=== PATIENT | female | born 1960 | race Caucasian/White ===

== ENCOUNTER 2016-09-10 12:28 | Emergency (ER) | payer MEDICAID ==
[~2016-09-10] VITALS: Ht 160 cm; Wt 65.8 kg
--- NOTE | 2016-09-10 12:38 | NUR ---
PT BIB C/O DIFFUSE ABD PAIN AND LOWER BACK PAIN X3 WKS, WORSE TODAY. REPORTS NAUSEA AND CONSTIPATION, NO VOMITING. RESP EVEN UNLABORED. SKIN WARM NONDIAPHORETIC. AMBULATORY WITH STEADY GAIT. NAD NOTED. DENIES URINARY SYMPTOMS.
[2016-09-10 13:19] LABS: BASOPHILS # (AUTO) 0.1 /CMM (0.0-0.2); BASOPHILS % (AUTO) 1.2 % (0.0-2.0); EOSINOPHILS # (AUTO) 0.1 /CMM (0.0-0.7); EOSINOPHILS % (AUTO) 1.4 % (0.0-6.0); HEMATOCRIT 37 % (33-45); HEMOGLOBIN 12.4 g/dL (11.5-14.8); LYMPHOCYTES # (AUTO) 2.2 /CMM (0.8-4.8); MEAN CORPUSCULAR HEMOGLOBIN 30 PG (26.0-33.0); MEAN CORPUSCULAR HGB CONC 33 g/dl (31.0-36.0); MEAN CORPUSCULAR VOLUME 91 fL (82-100); MONOCYTES # (AUTO) 0.3 /CMM (0.1-1.30); NEUTROPHILS # (AUTO) 2.1 /CMM (1.8-8.9); NEUTROPHILS % (AUTO) 44.4 % (43.0-81.0); PLATELET COUNT (AUTO) 279 /CMM (150-450); RDW COEFFICIENT OF VARIATION 12.6 (11.5-15.0); RED BLOOD CELL COUNT(AUTO) 4.09 MIL/uL (4.0-5.2); WHITE BLOOD COUNT (AUTO) 4.8 K/uL (4.3-11.0)
[2016-09-10 13:28] LABS: CALCIUM, SERUM 9.3 mg/dL (8.5-10.1); CREATININE 0.7 mg/dL (0.6-1.3); POTASSIUM 3.8 mmol/L (3.5-5.1)
[2016-09-10 13:33] LABS: ALBUMIN 3.9 g/dL (3.4-5.0); BILIRUBIN,DIRECT 0.1 mg/dL (0.0-0.2); BILIRUBIN,TOTAL 0.5 mg/dL (0.2-1.0); TOTAL PROTEIN, SERUM 7.4 g/dL (6.4-8.2)
[2016-09-10] MEDS: IV NS 0.9% 1,000 ML BAG IV ONE (13:37)
[2016-09-10] MEDS: MORPHINE SULFATE INJ 2 MG/ML DISP.SYRIN IV ONE (13:37)
[2016-09-10] MEDS: MORPHINE SULFATE INJ 4 MG/ML DISP.SYRIN ONE (13:38)
[2016-09-10] MEDS: ONDANSETRON HCL/PF 4 MG/2 ML VIAL ONE (13:38)
[2016-09-10] MEDS: ONDANSETRON HCL/PF 4 MG/2 ML VIAL IVP ONE (13:38)
--- NOTE | 2016-09-10 14:15 | NUR ---
RESTING QUIETLY, NAD NOTED. PAIN WELL CONTROLLED WITH MEDICATION ORDERED.
[2016-09-10 15:33] LABS: APPEARANCE,URINE CLEAR (CLEAR); BILIRUBIN,URINE NEGATIVE (NEGATIVE); BLOOD, URINE 1+ Ery/uL (NEGATIVE); COLOR,URINE YELLOW (YELLOW); KETONES,URINE NEGATIVE (NEGATIVE); LEUKOCYTE ESTERASE ,URINE NEGATIVE (NEGATIVE); NITRITE, URINE NEGATIVE (NEGATIVE); PH,URINE 7.5 (5.0-8.0); PROTEIN,URINE NEGATIVE (NEGATIVE); UGLUCOSE NEGATIVE (NEGATIVE); UROBILINOGEN,URINE 0.2 EU/dL (0.2)
[2016-09-10 15:39] LABS: BACTERIA,URINE Rare /HPF (None Seen); SQUAMOUS EPITHELIAL CELL,UR Rare /HPF (None Seen); URINE AMORPHOUS PHOSPHATES Few /HPF (None Seen); WBC,URINE 0-2 /HPF (0-3)
--- NOTE | 2016-09-10 15:50 | NUR ---
Patient discharged to home in stable condition. Written and verbal after care instructions given. Patient verbalizes understanding of instruction. IV removed. Catheter intact and site benign. Pressure and 4x4 applied to site. No bleeding noted.
[2016-09-10 15:51] VITALS: BP 129/76
== END 2016-09-10 15:52 | disposition home or self-care (01) ==
LOC: ER 12:29
DX: R10.84 Generalized abdominal pain (principal); B96.20 Unspecified Escherichia coli [E. coli] as the cause of diseases classified elsewhere; K57.30 Diverticulosis of large intestine without perforation or abscess without bleeding; N39.0 Urinary tract infection, site not specified; Z88.0 Allergy status to penicillin
CPT/HCPCS: 36415; 72128-TC; 80048-TC; 80076-TC; 81000-TC; 83690-TC; 85025-TC; A4606; J2270; J2405; J7030; Z7610

== ENCOUNTER 2016-09-17 15:53 | Inpatient (IN) | payer MEDICAID ==
[~2016-09-17] VITALS: Ht 160 cm; Wt 62.6 kg
--- NOTE | 2016-09-17 16:12 | NUR ---
R FLANK PAIN, R L Q ABD PAIN X 3 MONTHS. GOWNED PT PLACED ON MONITOR. AWAITING MD ORDER
[2016-09-17] MEDS ORDERED: ONDANSETRON HCL/PF 4 MG/2 ML VIAL ONE (16:27)
[2016-09-17 16:28] LABS: BASOPHILS % (AUTO) 0.5 % (0.0-2.0); EOSINOPHILS # (AUTO) 0.2 /CMM (0.0-0.7); EOSINOPHILS % (AUTO) 2.2 % (0.0-6.0); HEMATOCRIT 37 % (33-45); HEMOGLOBIN 12.3 g/dL (11.5-14.8); LYMPHOCYTES # (AUTO) 2.3 /CMM (0.8-4.8); LYMPHOCYTES % (AUTO) 28.8 % (20.0-44.0); MEAN CORPUSCULAR HEMOGLOBIN 31 PG (26.0-33.0); MEAN CORPUSCULAR HGB CONC 34 g/dl (31.0-36.0); MEAN CORPUSCULAR VOLUME 91 fL (82-100); MONOCYTES # (AUTO) 0.4 /CMM (0.1-1.30); NEUTROPHILS # (AUTO) 4.9 /CMM (1.8-8.9); NEUTROPHILS % (AUTO) 63.5 % (43.0-81.0); PLATELET COUNT (AUTO) 284 /CMM (150-450); RDW COEFFICIENT OF VARIATION 12.8 (11.5-15.0); RED BLOOD CELL COUNT(AUTO) 4.01 MIL/uL (4.0-5.2); WHITE BLOOD COUNT (AUTO) 7.8 K/uL (4.3-11.0)
[2016-09-17] MEDS ORDERED: MORPHINE SULFATE INJ 4 MG/ML DISP.SYRIN ONE (16:28)
[2016-09-17 16:30] LABS: APPEARANCE,URINE Clear (CLEAR); BILIRUBIN,URINE Negative (NEGATIVE); BLOOD, URINE Small Ery/uL (NEGATIVE); COLOR,URINE Yellow (YELLOW); KETONES,URINE Negative (NEGATIVE); LEUKOCYTE ESTERASE ,URINE Negative (NEGATIVE); NITRITE, URINE Negative (NEGATIVE); PH,URINE 6.5 (5.0-8.0); PROTEIN,URINE Negative (NEGATIVE); UGLUCOSE Negative (NEGATIVE); UROBILINOGEN,URINE 0.2 EU/dL (0.2)
[2016-09-17] MEDS ORDERED: IV NS 0.9% 1,000 ML BAG IV ONE (16:30)
[2016-09-17] MEDS ORDERED: MORPHINE SULFATE INJ 2 MG/ML DISP.SYRIN IV ONE (16:30)
[2016-09-17] MEDS ORDERED: ONDANSETRON HCL/PF 4 MG/2 ML VIAL IVP ONE (16:30)
--- NOTE | 2016-09-17 16:30 | NUR ---
LAC #20 IV ACCESS. BLOOD SAMPLE COLLECTED SENT TO LAB
[2016-09-17 16:38] LABS: CARBON DIOXIDE 29 mmol/L (21-32); CHLORIDE 106 mmol/L (98-107); CREATININE 0.9 mg/dL (0.6-1.3); GLUCOSE 106 mg/dL (74-106); POTASSIUM 3.7 mmol/L (3.5-5.1); SODIUM SERUM 142 mmol/L (136-145); UREA NITROGEN, BLOOD 14 mg/dL (7-18)
[2016-09-17 16:45] LABS: TROPONIN I < 0.017 ng/mL (0.00-0.056)
[2016-09-17 16:47] LABS: BACTERIA,URINE None seen /HPF (None Seen); SQUAMOUS EPITHELIAL CELL,UR Few /HPF (None Seen); WBC,URINE 0-2 /HPF (0-3)
[2016-09-17 16:53] LABS: ALANINE AMINOTRANSFERASE 17 U/L (12-78); ALBUMIN 3.9 g/dL (3.4-5.0); ALKALINE PHOSPHATASE 76 U/L (46-116); ASPARTATE AMINOTRANSFERASE 13 U/L (15-37); BILIRUBIN,DIRECT 0.1 mg/dL (0.0-0.2); BILIRUBIN,TOTAL 0.5 mg/dL (0.2-1.0); LIPASE 553 U/L (73-393); TOTAL PROTEIN, SERUM 7.4 g/dL (6.4-8.2)
[2016-09-17] MEDS ORDERED: IOHEXOL-300 100 ML VIAL IV ONE (16:55)
[2016-09-17] MEDS ORDERED: IV NS 0.9% 250 ML IV ONE (16:56)
--- NOTE | 2016-09-17 17:07 | NUR ---
PT WAS TAKEN TO CT
--- NOTE | 2016-09-17 18:05 | NUR ---
ASKED NURSING GYMNASTIC TEACHER FOR M/S BED
--- NOTE | 2016-09-17 18:10 | NUR ---
medical tech at bedside
--- NOTE | 2016-09-17 18:18 | NUR ---
gave report to sherrie hou medsurg admitting dx abd pain. admitting md dr osorio
[2016-09-17 19:00] VITALS: BP 158/76
--- NOTE | 2016-09-17 19:20 | NUR ---
MS RN ADMITTING NOTES: ADMITTED A 56 YO FEMALE PATIENT WHO WAS SEEN IN THE ER DUE TO ABDOMINAL AND LOW BACK PAIN, WITHOUT N/V OR DIARRHEA. PATIENT BROUGHT TO THE MS FLOOR VIA MARCELLUS, AOX4, ON ROOM AIR, BREATHING EVEN AND UNLABORED, BREATH SOUNDS CLEAR TO AUSCULTATION. PIV OVER LAC G20 INTACT AND PATENT TO FLUSH. PT IS COMPLAINING OF GENERALIZED PAIN OVER THE ABDOMEN, EXTENDING TO THE LOWER BACK SCALED AT 9/10. PROVIDED FOR COMFORT AND SAFETY. ORIENTED TO UNIT. BED IN LOWEST NAD LOCKED POSITION, SIDERAILS UP X3. WILL CONT TO MONITOR.
--- NOTE | 2016-09-17 20:15 | NUR ---
RN NOTES: CALLED DR JUÁREZ FOR ADMITTING ORDERS. DR JUÁREZ CALLED BACK, ADMITTING ORDERS GIVEN, NOTED AND CARRIED OUT.
[2016-09-17] MEDS: DOCUSATE SODIUM 100 MG CAPSULE PO SCH (20:49)
--- NOTE | 2016-09-17 20:55 | NUR ---
RN NOTES: DILAUDID 1 MG IV PRN GIVEN FOR PAIN OVER ABDOMEN AND LOWER BACK, SCALED AT 10/10. WILL CONT TO MONITOR.
[2016-09-17] MEDS ORDERED: ACETAMINOPHEN 325 MG TABLET PO PRN (21:00)
[2016-09-17] MEDS ORDERED: HYDROCODONE/APAP 5/325MG 1 EACH TABLET PO PRN (21:00)
[2016-09-17] MEDS ORDERED: HYDROMORPHONE 1 MG/1 ML DISP.SYRIN IV PRN (21:00)
[2016-09-17] MEDS ORDERED: ONDANSETRON HCL/PF 4 MG/2 ML VIAL IV PRN (21:00)
[2016-09-17] MEDS ORDERED: Potassium Chloride 20 MEQ in IV D5/ 0.9% NACL 1,000 ML IV PRN (21:00)
[2016-09-17] MEDS ORDERED: IV PREMIX D5 NS + KCL 1,000 ML IV ONE (21:14)
--- NOTE | 2016-09-17 21:15 | NUR ---
RN NOTES: PATIENT COMPLAINED OF HEADACHE AFTER RECEIVING THE DILAUDID IV AND REQUESTED FOR COLD COMPRESS OVER HER HEAD. PER PATIENT, SHE IS NOT USED TO "STRONG MEDICATIONS" AND DOES NOT TAKE MEDICATIONS AT HOME. ENCOURAGED ADEQUATE ORAL FLUID INTAKE WELL. VS TAKEN, STABLE.
--- NOTE | 2016-09-17 22:48 | NUR ---
RN NOTES: PATIENT'S STATED THAT PATIENT IS SHAKING, AND REQUESTED FOR BLOOD SUGAR TO BE CHECKED AT THIS TIME. PATIENT HAS JUST FINISHED SOME JELLO AND CRANBERRY JUICE, NOT VISIBLY SHAKING AT THIS TIME. BS CHECKED AT 133 MG/DL. WILL CONT TO MONITOR.
[2016-09-18 02:35] VITALS: BP 141/76
[2016-09-18 06:16] LABS: BASOPHILS % (AUTO) 0.2 % (0.0-2.0); EOSINOPHILS # (AUTO) 0.1 /CMM (0.0-0.7); EOSINOPHILS % (AUTO) 0.7 % (0.0-6.0); HEMATOCRIT 34 % (33-45); HEMOGLOBIN 11.6 g/dL (11.5-14.8); LYMPHOCYTES # (AUTO) 2.5 /CMM (0.8-4.8); LYMPHOCYTES % (AUTO) 27.3 % (20.0-44.0); MEAN CORPUSCULAR HEMOGLOBIN 31 PG (26.0-33.0); MEAN CORPUSCULAR HGB CONC 34 g/dl (31.0-36.0); MEAN CORPUSCULAR VOLUME 92 fL (82-100); MONOCYTES # (AUTO) 0.5 /CMM (0.1-1.30); MONOCYTES % (AUTO) 5.4 % (2.0-12.0); NEUTROPHILS # (AUTO) 6.1 /CMM (1.8-8.9); NEUTROPHILS % (AUTO) 66.4 % (43.0-81.0); PLATELET COUNT (AUTO) 242 /CMM (150-450); RDW COEFFICIENT OF VARIATION 13.6 (11.5-15.0); RED BLOOD CELL COUNT(AUTO) 3.74 MIL/uL (4.0-5.2); WHITE BLOOD COUNT (AUTO) 9.2 K/uL (4.3-11.0)
[2016-09-18 06:36] LABS: ALBUMIN 3.5 g/dL (3.4-5.0); BILIRUBIN,TOTAL 0.5 mg/dL (0.2-1.0); CALCIUM, SERUM 8.2 mg/dL (8.5-10.1); CREATININE 0.6 mg/dL (0.6-1.3); POTASSIUM 3.9 mmol/L (3.5-5.1); TOTAL PROTEIN, SERUM 6.7 g/dL (6.4-8.2)
--- NOTE | 2016-09-18 06:42 | NUR ---
MS RN CLOSING NOTES: PATIENT IN BED, AOX4, ON ROOM AIR, BREATHING EVEN AND UNLABORED. STILL COMPLAINING OF LOWER ABDOMINAL PAIN AND LOWER BACK PAIN SCALED AT 5/10, BUT REFUSES PAIN MEDICATIONS, SAYING THAT IT GIVES HER A HEADACHE. DUE MEDS GIVEN. PIV OVER LAC G 20 INTACT AND INFUSING WELL WITH D5NS + 20 MEQS KCL RUNNING AT 100 ML/HR. PROVIDED FOR COMFORT AND SAFETY. NO ACUTE CHANGE IN CONDITION NOTED THROUGH SHIFT. WILL ENDORSE TO AM RN FOR KESHA.
[2016-09-18] MEDS ORDERED: PANTOPRAZOLE 40 MG TABLET.DR PO SCH (07:30)
--- NOTE | 2016-09-18 07:30 | NUR ---
MS/RN Patient recieved Patient received from night custodian. No needs at this time, all questions answered. Call light within reach, will continue to monitor and ensure safety.
[2016-09-18 08:00] VITALS: BP 146/72
[2016-09-18] MEDS: DOCUSATE SODIUM 100 MG CAPSULE PO SCH (08:07)
--- NOTE | 2016-09-18 08:15 | NUR ---
MS/RN Medications Wyola and zofran adminstered for nausea and pain, will monitor effectiveness.
--- NOTE | 2016-09-18 09:00 | NUR ---
MS/RN S/B Dr Martínez Seen by Dr Martínez - MRI lumbar spine ordered to rule out disc disease. For possible discharge later this afternoon.
--- NOTE | 2016-09-18 09:24 | NUR ---
MS/RN MRI checklist MRI checklist completed.
[2016-09-18 10:46] VITALS: BP 146/72
--- NOTE | 2016-09-18 11:45 | NUR ---
MS/RN Dr Cotton reports that he was spoken to the patient's primary care doctor and that he is requesting to be contacted by Dr Baird with an update. Dr Baird given contact name and information.
--- NOTE | 2016-09-18 12:29 | NUR ---
MS/RN Pain Continues to complain of abdominal pain but refusing dilaudid and norco. Only other medication ordered for pain is tylenol. Per patient, is willing to take tylenol. Administered, will monitor effectiveness.
--- NOTE | 2016-09-18 15:31 | NUR ---
MS/RN MRI Patient back from MRI, awaiting results.
--- NOTE | 2016-09-18 16:04 | NUR ---
MS/RN MRI result MRI resulted, result relaid to Dr Baird. Awaiting orders.
--- NOTE | 2016-09-18 16:14 | NUR ---
MS/RN Back back from MD Received call back from Dr Baird - patient to be discharged.
--- NOTE | 2016-09-18 16:36 | NUR ---
MS/director of student affairs Discharged to home in stable condition. All personal belongings with patient and signed for on belongings list. Education provided to patient about when to return to the nearest emergency room. Instructed to follow up with primary care doctor Dr Cotton in 7-10 days, patient's said that they would make the appointment as to fit in with his work schedule. Prescription for norco provided, informed that this medication contains tylenlol and to be mindful if taking other medicines that contain this drug as to not overdose. Patient stated understanding. Heplock and name bands removed. Escorted to main lobby by AERONAUTICS COMMISSION DIRECTOR, to provide transport home.
== END 2016-09-18 16:30 | disposition home or self-care (01) | DRG 251 ==
LOC: ER 15:57 → MED 19:43
PROVIDERS: ADMIT Internal Medicine; ATTEND Internal Medicine
DX: R10.9 Unspecified abdominal pain (principal); S39.012A Strain of muscle, fascia and tendon of lower back, initial encounter; M51.37 Other intervertebral disc degeneration, lumbosacral region; X58.XXXA Exposure to other specified factors, initial encounter; Y93.9 Activity, unspecified; Y92.009 Unspecified place in unspecified non-institutional (private) residence as the place of occurrence of the external cause
CPT/HCPCS: 36415; 71010-TC; 72100-TC; 72148-TC; 76700-TC; 80048-TC; 80053-TC; 80076-TC; 81000-TC; 82150-TC; 82962-TC; 83690-TC; 84484-TC; 85025-TC; 87081-TC; A4606; J1170; J2270; J2405; J3480; J3490; J7030; J7042; J7050; Q9967; Z7610

== ENCOUNTER 2017-02-07 09:57 | Emergency (ER) | payer MEDICAID ==
[~2017-02-07] VITALS: Ht 160 cm; Wt 57.6 kg
[2017-02-07] MEDS ORDERED: ESCITALOPRAM 10 MG TABLET (10:11)
[2017-02-07] MEDS ORDERED: XIFAXAN 550 MG TABLET (10:11)
[2017-02-07] MEDS ORDERED: IV NS 0.9% 1,000 ML BAG IV ONE (11:00)
--- NOTE | 2017-02-07 11:00 | NUR ---
ASSUME PT CARE, HERE FOR DIZZINESS. NUMBNESS AND TINGGLING TO BOTH HAND. WORST YESTERDAY.BEEN GOING ON FOR 3 DAYS. PT SEEN AND EVALUATED BY PRINCE. VSS. WILL CONT TO MONITOR.
--- NOTE | 2017-02-07 11:09 | NUR ---
IV LINE STARTED BLOOD DRAWN AND SENT TO LAB.
[2017-02-07 11:19] LABS: BASOPHILS % (AUTO) 0.6 % (0.0-2.0); EOSINOPHILS % (AUTO) 0.7 % (0.0-6.0); HEMATOCRIT 39 % (33-45); HEMOGLOBIN 13.1 g/dL (11.5-14.8); LYMPHOCYTES # (AUTO) 2.1 /CMM (0.8-4.8); LYMPHOCYTES % (AUTO) 39.7 % (20.0-44.0); MEAN CORPUSCULAR HEMOGLOBIN 30 PG (26.0-33.0); MEAN CORPUSCULAR HGB CONC 34 g/dl (31.0-36.0); MEAN CORPUSCULAR VOLUME 90 fL (82-100); MONOCYTES # (AUTO) 0.3 /CMM (0.1-1.30); MONOCYTES % (AUTO) 5.4 % (2.0-12.0); NEUTROPHILS # (AUTO) 2.8 /CMM (1.8-8.9); NEUTROPHILS % (AUTO) 53.6 % (43.0-81.0); PLATELET COUNT (AUTO) 260 /CMM (150-450); RDW COEFFICIENT OF VARIATION 12.9 (11.5-15.0); RED BLOOD CELL COUNT(AUTO) 4.32 MIL/uL (4.0-5.2); WHITE BLOOD COUNT (AUTO) 5.3 K/uL (4.3-11.0)
[2017-02-07 11:28] LABS: CALCIUM, SERUM 9.4 mg/dL (8.5-10.1); CREATININE 0.7 mg/dL (0.6-1.3); POTASSIUM 3.7 mmol/L (3.5-5.1)
--- NOTE | 2017-02-07 12:22 | NUR ---
Patient discharged to home in stable condition. Written and verbal after care instructions given. Patient verbalizes understanding of instruction.IV removed. Catheter intact and site benign. Pressure and 4x4 applied to site. No bleeding noted.
[2017-02-07 12:23] VITALS: BP 138/80
== END 2017-02-07 12:26 | disposition home or self-care (01) ==
LOC: ER 10:00
DX: R42 Dizziness and giddiness (principal); F41.9 Anxiety disorder, unspecified; Z88.1 Allergy status to other antibiotic agents; Z88.2 Allergy status to sulfonamides; Z88.8 Allergy status to other drugs, medicaments and biological substances
CPT/HCPCS: 36415; 80048; 85025; 93005; 99285; A4606; J7030 ×2; Z7610

== ENCOUNTER 2019-12-06 09:37 | Emergency (ER) | payer MEDICAID ==
[~2019-12-06] VITALS: Ht 160 cm; Wt 64.4 kg
[~2019-12-06 09:37] MED LIST: ESCITALOPRAM 10 MG TABLET; XIFAXAN 550 MG TABLET
--- NOTE | 2019-12-06 09:37 | NUR ---
PT BIB SELF C/O LOWER ABODMINAL PAIN FOR 4 DAYS. PT IS AAOX4, NOT IN RESPIRATORY DISTRESS, HOOKED TO PHOTOGRAPHS CURATOR, KEPT RESTED AND COMFORTABLE. WILL CONTINUE TO MONITOR.
--- NOTE | 2019-12-06 09:52 | NUR ---
SEEN AND EXAMINED BY DR. IVEY.
[2019-12-06] MEDS ORDERED: ONDANSETRON HCL/PF 4 MG/2 ML VIAL IVP ONE (10:00)
[2019-12-06] MEDS ORDERED: IV NS 0.9% 500 ML BAG IV ONE (10:00)
--- NOTE | 2019-12-06 10:00 | NUR ---
IV LINE ESTABLISHED BLOOD DRAWN AND SENT TO LAB.
--- NOTE | 2019-12-06 10:06 | NUR ---
PT IS WHEELED TO CT SCAN VIA [facility].
[2019-12-06 10:39] LABS: BASOPHILS % (AUTO) 0.5 % (0.0-2.0); EOSINOPHILS % (AUTO) 1.9 % (0.0-6.0); HEMATOCRIT 38 % (33-45); HEMOGLOBIN 12.8 g/dL (11.5-14.8); LYMPHOCYTES # (AUTO) 2.2 /CMM (0.8-4.8); LYMPHOCYTES % (AUTO) 43.9 % (20.0-44.0); MEAN CORPUSCULAR HGB CONC 34 g/dl (31.0-36.0); MEAN CORPUSCULAR VOLUME 92 fL (82-100); MONOCYTES # (AUTO) 0.2 /CMM (0.1-1.30); MONOCYTES % (AUTO) 4.9 % (2.0-12.0); NEUTROPHILS # (AUTO) 2.4 /CMM (1.8-8.9); NEUTROPHILS % (AUTO) 48.8 % (43.0-81.0); PLATELET COUNT (AUTO) 286 /CMM (150-450); RED BLOOD CELL COUNT(AUTO) 4.11 MIL/uL (4.0-5.2)
[2019-12-06 10:46] LABS: CALCIUM, SERUM 9.1 mg/dL (8.5-10.1); CREATININE 0.8 mg/dL (0.6-1.3); POTASSIUM 3.4 mmol/L (3.5-5.1)
[2019-12-06 10:57] LABS: BILIRUBIN,DIRECT 0.1 mg/dL (0.0-0.2); BILIRUBIN,TOTAL 0.6 mg/dL (0.2-1.0); TOTAL PROTEIN, SERUM 7.7 g/dL (6.4-8.2)
--- NOTE | 2019-12-06 11:23 | NUR ---
IV removed. Catheter intact and site benign. Pressure and 4x4 applied to site. No bleeding noted.Patient discharged to home in stable condition. Written and verbal after care instructions given. Patient verbalizes understanding of instruction.
[2019-12-06 11:30] VITALS: BP 140/88
== END 2019-12-06 11:30 | disposition home or self-care (01) ==
LOC: ER 09:43
DX: K57.30 Diverticulosis of large intestine without perforation or abscess without bleeding (principal); Z98.890 Other specified postprocedural states; Z88.1 Allergy status to other antibiotic agents; Z88.2 Allergy status to sulfonamides; Z88.8 Allergy status to other drugs, medicaments and biological substances
CPT/HCPCS: 36415; 74176; 80048; 80076; 85025; 99284; J7030

== ENCOUNTER 2020-09-13 20:42 | Emergency (ER) | payer MEDICAID ==
[~2020-09-13] VITALS: Ht 160 cm; Wt 63.5 kg
--- NOTE | 2020-09-13 20:58 | NUR ---
presented to the ER for c/o L fifth toe pain s/p was hit by the door and bed backward. pt ambulatory to bed 2 er, wsa placed on a monitor. awaiting for md's hillary
[2020-09-13 21:22] VITALS: BP 175/85
[2020-09-13] MEDS ORDERED: TRAM50TA2 PO (21:33)
[2020-09-13] MEDS ORDERED: IBUP-1955 PO (21:33)
--- NOTE | 2020-09-13 22:10 | NUR ---
called jeffry for x ray read
--- NOTE | 2020-09-13 22:20 | NUR ---
pt was provided w/ hard sole shoe and medically stable for d/c per Lev jackson. Patient discharged to home in stable condition. Rx and Written and verbal after care instructions given. Patient verbalizes understanding of instruction.
== END 2020-09-13 22:22 | disposition home or self-care (01) ==
LOC: ER 20:46
DX: M79.675 Pain in left toe(s) (principal); Z88.1 Allergy status to other antibiotic agents; Z88.2 Allergy status to sulfonamides; Z88.6 Allergy status to analgesic agent; Z60.2 Problems related to living alone; Z79.899 Other long term (current) drug therapy
CPT/HCPCS: 73660-TC

== ENCOUNTER 2020-10-22 21:42 | Emergency (ER) | payer MEDICAID ==
[~2020-10-22] VITALS: Ht 160 cm; Wt 63.5 kg
[~2020-10-22 21:42] MED LIST changes: +IBUP-1955 PO; +TRAM50TA2 PO
--- NOTE | 2020-10-22 22:22 | NUR ---
URINE COLLECTED AND SENT TO LAB
[2020-10-22] MEDS ORDERED: KETOROLAC TROMETHAMINE INJ 30 MG/ML VIAL ONE (22:27)
[2020-10-22] MEDS ORDERED: FAMOTIDINE/PF INJ 20 MG/2 ML VIAL IV ONE ×2 (22:27→22:30)
[2020-10-22] MEDS ORDERED: KETOROLAC TROMETHAMINE INJ 30 MG/ML VIAL IV ONE (22:30)
[2020-10-22] MEDS ORDERED: IV NS 0.9% 500 ML BAG IV ONE (22:30)
[2020-10-22 22:32] LABS: BASOPHILS # (AUTO) 0.1 K/uL (0.0-0.2); EOSINOPHILS % (AUTO) 1.5 % (0.0-6.0); HEMATOCRIT 34 % (33-45); HEMOGLOBIN 11.7 g/dL (11.5-14.8); LYMPHOCYTES # (AUTO) 2.8 K/uL (0.8-4.8); LYMPHOCYTES % (AUTO) 31.4 % (20.0-44.0); MEAN CORPUSCULAR HGB CONC 34 g/dl (31.0-36.0); MEAN CORPUSCULAR VOLUME 92 fL (82-100); MONOCYTES # (AUTO) 0.5 K/uL (0.1-1.30); MONOCYTES % (AUTO) 6.1 % (2.0-12.0); NEUTROPHILS # (AUTO) 5.3 K/uL (1.8-8.9); PLATELET COUNT (AUTO) 251 K/uL (150-450); RED BLOOD CELL COUNT(AUTO) 3.72 MIL/uL (4.0-5.2); WHITE BLOOD COUNT (AUTO) 8.9 K/uL (4.3-11.0)
--- NOTE | 2020-10-22 23:04 | NUR ---
patient back from CT.
[2020-10-22 23:10] LABS: BILIRUBIN,URINE NEGATIVE (NEGATIVE); COLOR,URINE YELLOW (YELLOW); LEUKOCYTE ESTERASE ,URINE SMALL (NEGATIVE); NITRITE, URINE NEGATIVE (NEGATIVE); PROTEIN,URINE NEGATIVE (NEGATIVE); UGLUCOSE NEGATIVE (NEGATIVE); UROBILINOGEN,URINE 0.2 EU/dL (0.2)
[2020-10-22 23:30] LABS: CALCIUM, SERUM 9.2 mg/dL (8.5-10.1); CARBON DIOXIDE 28 mmol/L (21-32); CHLORIDE 107 mmol/L (98-107); CREATININE 0.9 mg/dL (0.6-1.3); GLUCOSE 109 mg/dL (74-106); POTASSIUM 3.7 mmol/L (3.5-5.1); SODIUM SERUM 144 mmol/L (136-145); UREA NITROGEN, BLOOD 13 mg/dL (7-18)
[2020-10-22 23:33] LABS: BACTERIA,URINE Many /HPF (None Seen); RBC,URINE 51-80 /HPF (0-2); SQUAMOUS EPITHELIAL CELL,UR Few /HPF (None Seen); WBC,URINE 81-100 /HPF (0-3)
[2020-10-22 23:38] LABS: ALANINE AMINOTRANSFERASE 19 U/L (12-78); ALBUMIN 3.8 g/dL (3.4-5.0); ALKALINE PHOSPHATASE 74 U/L (46-116); ASPARTATE AMINOTRANSFERASE 10 U/L (15-37); BILIRUBIN,DIRECT 0.1 mg/dL (0.0-0.2); BILIRUBIN,TOTAL 0.6 mg/dL (0.2-1.0); LIPASE 152 U/L (73-393); TOTAL PROTEIN, SERUM 7.3 g/dL (6.4-8.2)
[2020-10-23] MEDS ORDERED: CEFD300C3 PO (00:36)
[2020-10-23] MEDS ORDERED: CEFTRIAXONE 1 G VIAL ONE (00:41)
[2020-10-23] MEDS ORDERED: CEFTRIAXONE 1GM BAG (ER ONLY) 1 GM/50 ML PIGGYBACK IV ONE (01:00)
--- NOTE | 2020-10-23 01:00 | NUR ---
PT DISCHARGED HOME. DISCHARGE INSTRUCTIONS GIVEN WITH RX. PT UNDERSTANDS INSTRUCTION AND LEFT AMBULATING. NO FURTHER QUESTIONS ASKED.
[2020-10-23 01:14] VITALS: BP 138/88
== END 2020-10-23 01:03 | disposition home or self-care (01) ==
LOC: ER 21:42
DX: N30.00 Acute cystitis without hematuria (principal); R30.0 Dysuria; R10.2 Pelvic and perineal pain; R19.7 Diarrhea, unspecified; Z98.890 Other specified postprocedural states; Z88.1 Allergy status to other antibiotic agents; Z88.2 Allergy status to sulfonamides; Z88.8 Allergy status to other drugs, medicaments and biological substances; Z60.2 Problems related to living alone; Z79.899 Other long term (current) drug therapy
CPT/HCPCS: 36415; 74176; 80048; 80076; 81001; 83605; 83690; 84484; 85025; 85730; 87077; 87086; 87186; 93005; 96361; 96374; 96375 ×2; 99285; J0696; J1885; J3490; J7030

== ENCOUNTER 2020-11-06 10:07 | Emergency (ER) | payer MEDICAID ==
[~2020-11-06] VITALS: Ht 160 cm; Wt 61.2 kg
[~2020-11-06 10:07] MED LIST changes: +CEFD300C3 PO
--- NOTE | 2020-11-06 10:24 | NUR ---
pt rec'd to er c/o abd pain unable to pass gas 10/10 pain hasn't had a colonoscopy in 5 years , has an vinod nov AWAITING EVALUATION BY ER PROVIDER.
--- NOTE | 2020-11-06 10:40 | NUR ---
IV LINE ESTABLISHED BLOOD DRAWN AND SENT TO LAB.
[2020-11-06] MEDS ORDERED: KETOROLAC TROMETHAMINE 15 MG/ML VIAL ONE (10:45)
[2020-11-06] MEDS ORDERED: ONDANSETRON HCL/PF 4 MG/2 ML VIAL ONE (10:45)
[2020-11-06] MEDS: IV NS 0.9% 1,000 ML BAG IV ONE ×2 (10:49→10:55)
[2020-11-06 10:50] LABS: HEMATOCRIT 38 % (33-45); HEMOGLOBIN 12.7 g/dL (11.5-14.8); RED BLOOD CELL COUNT(AUTO) 4.13 MIL/uL (4.0-5.2)
[2020-11-06 10:53] LABS: BILIRUBIN,URINE Negative (NEGATIVE); COLOR,URINE YELLOW (YELLOW); LEUKOCYTE ESTERASE ,URINE Negative (NEGATIVE); NITRITE, URINE Negative (NEGATIVE); PROTEIN,URINE Negative (NEGATIVE); UGLUCOSE Negative (NEGATIVE); UROBILINOGEN,URINE 0.2 EU/dL (0.2)
[2020-11-06 10:53] LABS: BASOPHILS % (AUTO) 0.8 % (0.0-2.0); EOSINOPHILS % (AUTO) 1.7 % (0.0-6.0); LYMPHOCYTES % (AUTO) 40.1 % (20.0-44.0); MEAN CORPUSCULAR HGB CONC 33 g/dl (31.0-36.0); MEAN CORPUSCULAR VOLUME 92 fL (82-100); MONOCYTES # (AUTO) 0.3 K/uL (0.1-1.30); MONOCYTES % (AUTO) 6.4 % (2.0-12.0); NEUTROPHILS # (AUTO) 2.5 K/uL (1.8-8.9); PLATELET COUNT (AUTO) 262 K/uL (150-450)
[2020-11-06 10:57] LABS: CREATININE 0.9 mg/dL (0.6-1.3); POTASSIUM 3.8 mmol/L (3.5-5.1)
--- NOTE | 2020-11-06 10:57 | NUR ---
iv started left ac 18g labs drawn and ua set to lab meds given per md order pt sent to ct
[2020-11-06] MEDS ORDERED: IOHEXOL-300 100 ML VIAL IV ONE (10:59)
[2020-11-06] MEDS ORDERED: ONDANSETRON HCL/PF 4 MG/2 ML VIAL IVP ONE (11:00)
[2020-11-06] MEDS ORDERED: KETOROLAC TROMETHAMINE INJ 30 MG/ML VIAL IV ONE (11:00)
[2020-11-06] MEDS ORDERED: IV NS 0.9% 250 ML IV ONE (11:00)
[2020-11-06] MEDS ORDERED: MORPHINE SULFATE INJ 2 MG/ML DISP.SYRIN IV ONE (11:00)
[2020-11-06] MEDS ORDERED: CT SWABBABLE VALVE TRANS SET 1 EA INFUS.SET MC ONE (11:00)
[2020-11-06 11:03] LABS: BILIRUBIN,DIRECT 0.1 mg/dL (0.0-0.2); BILIRUBIN,TOTAL 0.7 mg/dL (0.2-1.0); TOTAL PROTEIN, SERUM 7.7 g/dL (6.4-8.2)
[2020-11-06 11:03] LABS: BACTERIA,URINE Rare /HPF (None Seen); SQUAMOUS EPITHELIAL CELL,UR Few /HPF (None Seen); WBC,URINE NONE SEEN /HPF (0-3)
[2020-11-06] MEDS ORDERED: DICY10CA37 PO (12:02)
[2020-11-06 12:27] VITALS: BP 134/76
== END 2020-11-06 12:30 | disposition home or self-care (01) ==
LOC: ER 10:12
DX: R10.31 Right lower quadrant pain (principal); Z98.890 Other specified postprocedural states; Z88.1 Allergy status to other antibiotic agents; Z88.8 Allergy status to other drugs, medicaments and biological substances; Z88.2 Allergy status to sulfonamides; Z60.2 Problems related to living alone; Z79.899 Other long term (current) drug therapy
CPT/HCPCS: 36415; 74177; 80048; 80076; 81001; 83690; 85025; 96361; 96374; 96375; 99285; J1885; J2405; J7050; Q9967

== ENCOUNTER 2023-06-30 09:25 | Emergency (ER) | payer MEDICAID, OTHER ==
[~2023-06-30] VITALS: Ht 160 cm; Wt 63.0 kg
[~2023-06-30 09:25] MED LIST changes: +DICY10CA37 PO
[2023-06-30 09:47] LABS: APPEARANCE,URINE CLEAR (CLEAR); BILIRUBIN,URINE NEGATIVE (NEGATIVE); BLOOD, URINE 1+ Ery/uL (NEGATIVE); COLOR,URINE YELLOW (YELLOW); KETONES,URINE NEGATIVE (NEGATIVE); LEUKOCYTE ESTERASE ,URINE NEGATIVE (NEGATIVE); NITRITE, URINE NEGATIVE (NEGATIVE); PROTEIN,URINE NEGATIVE (NEGATIVE); UGLUCOSE NEGATIVE (NEGATIVE); UROBILINOGEN,URINE 0.2 EU/dL (0.2)
[2023-06-30] MEDS: IV NS 0.9% 1,000 ML BAG IV ONE (10:05)
[2023-06-30 10:09] LABS: BASOPHILS % (AUTO) 0.9 % (0.0-2.0); EOSINOPHILS # (AUTO) 0.1 K/uL (0.0-0.7); EOSINOPHILS % (AUTO) 1.4 % (0.0-6.0); HEMATOCRIT 40 % (33-45); HEMOGLOBIN 13.2 g/dL (11.5-14.8); LYMPHOCYTES # (AUTO) 1.7 K/uL (0.8-4.8); MEAN CORPUSCULAR HEMOGLOBIN 31 PG (26.0-33.0); MEAN CORPUSCULAR HGB CONC 34 g/dl (31.0-36.0); MEAN CORPUSCULAR VOLUME 91 fL (82-100); MONOCYTES # (AUTO) 0.2 K/uL (0.1-1.30); MONOCYTES % (AUTO) 4.2 % (2.0-12.0); NEUTROPHILS # (AUTO) 3.2 K/uL (1.8-8.9); NEUTROPHILS % (AUTO) 60.5 % (43.0-81.0); PLATELET COUNT (AUTO) 283 K/uL (150-450); RED BLOOD CELL COUNT(AUTO) 4.35 MIL/uL (4.0-5.2); RED CELL DISTRIBUTION WIDTH 13.6 % (11.5-15.0); WHITE BLOOD COUNT (AUTO) 5.3 K/uL (4.3-11.0)
[2023-06-30] MEDS ORDERED: MAG HYDROX/AL HYDROX/SIMETH 30 ML UDC ONE (10:09)
[2023-06-30] MEDS ORDERED: KETOROLAC TROMETHAMINE 15 MG/ML VIAL ONE (10:09)
[2023-06-30] MEDS ORDERED: FAMOTIDINE/PF INJ 20 MG/2 ML VIAL IV ONE (10:09)
[2023-06-30] MEDS: FAMOTIDINE/PF INJ 20 MG/2 ML VIAL IV ONE (10:12)
[2023-06-30] MEDS: KETOROLAC TROMETHAMINE 15 MG/ML VIAL IV ONE (10:13)
[2023-06-30] MEDS: MAG HYDROX/AL HYDROX/SIMETH 30 ML UDC PO ONE (10:13)
[2023-06-30 10:23] LABS: CALCIUM, SERUM 9.1 mg/dL (8.5-10.1); CREATININE 0.8 mg/dL (0.6-1.3); POTASSIUM 4.6 mmol/L (3.5-5.1)
[2023-06-30 10:28] LABS: ALBUMIN 3.7 g/dL (3.4-5.0); BILIRUBIN,DIRECT 0.1 mg/dL (0.0-0.2); BILIRUBIN,TOTAL 0.8 mg/dL (0.2-1.0)
[2023-06-30] MEDS ORDERED: NAPR-1164 PO (10:53)
[2023-06-30 11:36] LABS: ADD URINE CULTURE NO; BACTERIA,URINE None seen /HPF (None Seen); SQUAMOUS EPITHELIAL CELL,UR 0-2 /HPF (None Seen); WBC,URINE NONE SEEN /HPF (0-3)
[2023-06-30 11:55] VITALS: BP 124/78; TEMP 98.2; O2SAT 99
== END 2023-06-30 11:58 | disposition home or self-care (01) ==
LOC: ER 09:25
DX: R10.30 Lower abdominal pain, unspecified (principal); Z87.19 Personal history of other diseases of the digestive system; Z87.448 Personal history of other diseases of urinary system; Z88.8 Allergy status to other drugs, medicaments and biological substances; Z60.2 Problems related to living alone
CPT/HCPCS: 99284; 96374; 96375; 85025; 80048; 83690; 80076; 81001; 36415; J3490; J7030; J1885